=== PATIENT | female | born 1960 | race Caucasian/White ===

== ENCOUNTER 2023-09-05 21:11 | Emergency (ER) | payer OTHER, SELFPAY ==
[2023-09-05 21:14] VITALS: BP 157/109
[2023-09-05 21:57] LABS: % Eosinophils 0.8 % (0-6); % Immature Granulocytes 0.3 % (0-0.5); % Monocytes 5.9 % (1.7-9.3); Absolute Basophils 0.1 10^3/uL (0-0.2); Absolute Eosinophils 0.1 10^3/uL (0-0.7); Absolute Lymphocytes 2.6 10^3/uL (1.2-3.4); Absolute Monocytes 0.6 10^3/uL (0.1-0.6); Absolute Neutrophils 6.9 10^3/uL (1.4-6.5); Hemoglobin 14.8 g/dL (12.0-16.0); Mean Corp Hgb Conc. 36.1 g/dL (33.0-37.0); Mean Corpuscular Hgb 30.3 pg (27.0-31.0); Mean Corpuscular Volume 83.8 fL (81.0-99.0); Mean Platelet Volume 10.7 fL (7.4-10.4); Nucleated Red Blood Cells % 0 %; Platelet Count 351 10^3/uL (130-400); Red Blood Cell Count 4.89 10^6/uL (4.20-5.40); Red Cell Dist. Width 12.2 % (11.5-14.5); White Blood Cell Count 10.3 10^3/uL (4.8-10.8)
[2023-09-05 22:00] VITALS: BP 137/93
[2023-09-05 22:21] LABS: ALT (SGPT) 28 U/L (0-35); AST (SGOT) 26 U/L (14-36); Albumin 4.7 g/dl (3.5-5.0); Alkaline Phosphatase 64 U/L (38-126); Blood Urea Nitrogen 13 mg/dl (7-17); Carbon Dioxide 24 mmol/L (22-30); Chloride 97 mmol/L (98-107); Glucose 120 mg/dl (70-99); Potassium 3.1 mmol/L (3.5-5.1); Sodium 135 mmol/L (135-145); Total Bilirubin 0.5 mg/dl (0.2-1.3); Total Protein 7.9 g/dl (6.3-8.2); eGFR > 60.00
[2023-09-05 22:31] LABS: Troponin I < 0.012 ng/ml
--- NOTE | 2023-09-05 22:50 | ED.GENMED ---
History of Present Illness
General
Chief Complaint: Dehydration Symptoms
Source: patient and spouse
Exam Limitations: none
Time Seen by Provider: 09/05/23 22:10
Travel History
Have you had any contact with someone who has COVID-19?: No
Do you have any symptoms of coronavirus? Fever > 100 degrees, chills, cough, shortness of breath, sore throat, loss of taste or smell, muscle aches, or headache?: No
History of Present Illness
History of Present Illness:
63-year-old female presents with feeling dehydrated. Patient states she was out in the sun working in her yard. She then was out in the sun reading a book. Patient admits that she is on hydrochlorothiazide. She states she started to feel really
dehydrated. She felt very thirsty and then felt a little bit like she could not think straight. She then had palpitations. She checked her heart rate and felt like it was fast and may be as high as 130. Patient now feels much better and started
feel better on arrival to the emergency department. She denies associate chest pain or shortness of breath. She denies abdominal pain. No vomiting.
Past History
Past History
ED Past Medical History: HTN
ED Past Surgical History: Tonsilectomy
Social History
Tobacco: Non-smoker
Personal:
Living: with family
Family History
Family History: Negative Early CAD
Phy Exam
Physical Exam
Physical Exam:
CONSTITUTIONAL Patient alert and oriented to person, place and time. Well-appearing. Vital signs reviewed.
HEAD atraumatic, normocephalic.
EYES eyelids normal to inspection, Extraocular muscles intact, Conjunctiva normal, Sclera normal.
NECK normal range of motion, Trachea midline, no jugular venous distention.
RESPIRATORY CHEST No respiratory distress noted, Chest expansion equal, Bilateral breath sounds clear.
CARDIOVASCULAR regular rate and rhythm, Heart sounds normal.
ABDOMEN abdomen nontender, Bowel sounds normal. No distention.
BACK normal inspection, no obvious deformities
UPPER EXTREMITY range of motion normal, Motor strength normal, no cyanosis, no edema.
LOWER EXTREMITY range of motion normal, Motor strength normal, no cyanosis, no edema.
NEURO Speech normal, No focal motor deficits, Dang coma scale 15, Memory normal, Cranial Nerves intact to screening exam.
SKIN skin warm, dry, and normal in color.
PSYCHIATRIC patient oriented to person place and time, Normal affect.
Course
Orders/Labs/Results
Orders:
Orders
09/05/23 21:18
ECG [Electrocardiogram (*1)] Urgent
Reason for Study: Fatigue / Weakness
09/05/23 21:19
EKG- Treatment ONCE
09/05/23 21:47
CMP [Comprehensive Metabolic Panel] Urgent
Complete Blood Count/With Diff Urgent
09/05/23 21:49
Troponin I Urgent
09/05/23 22:50
Potassium Chloride 10% Elixir [KCl Elixir] 40 meq PO NOW STA
09/06/23 00:26
Potassium Chloride 10% Elixir [KCl Elixir] 40 meq PO NOW STA
Abnormal Lab Results
09/05/23
21:47
MPV 10.7 H fL
(7.4-10.4)
Absolute Neuts (auto) 6.9 H 10^3/uL
(1.4-6.5)
Potassium 3.1 L mmol/L
(3.5-5.1)
Chloride 97 L mmol/L
(98-107)
Glucose 120 H mg/dl
(70-99)
09/05/23 21:47
09/05/23 21:47
Vital Signs
Initial and Last Documented VS:
Initial Vital Signs
Temp Pulse Resp BP Pulse Ox
98.2 F 91 20 157/109 98
09/05/23 21:14 09/05/23 21:14 09/05/23 21:14 09/05/23 21:14 09/05/23 21:14
Last Documented Vital Signs
Temp Pulse Resp BP Pulse Ox
98.2 F 74 22 124/92 96
09/05/23 21:14 09/06/23 00:00 09/06/23 00:00 09/05/23 23:00 09/06/23 00:00
MDM/Problems Addressed
MDM/Problems Addressed:
Hypokalemia, dehydration
*Pulse Oximetry
Patient hypoxic: no
*EKG
Interpreted by ED Provider?: Yes
Interpretation: normal
Rate: normal
Rhythm: sinus
[place]: normal axis
QRS Pattern: poor R-wave progression
Ischemia: no ischemia
*Conversion Worker Interpretation
Rate: normal
Interpretation: normal
Rhythm: sinus
*Critical Care Note
Total Time (30-74mins, 75-104mins- exclusive of procedures): Not Applicable
Data Reviewed
Source: patient
Further Testing Considered But Not Given:
Consider D-dimer but no clinical risks of PE
Patient Management
Escalation/DeEscalation of care consider admission/obs:
Patient appears well. Remains in normal sinus rhythm. Hypokalemia noted likely from hydrochlorothiazide. Patient states she was on potassium in the past but stopped taking it. Recommended outpatient follow-up and daily potassium for the next 5
days.
ED Attending Note
-
Portions of this chart may have been created with voice recognition software.� Occasional wrong word or��sound alike� substitutions may have occurred due to the inherent limitations of voice recognition software.
Discharge Plan
Departure
Patient Disposition: Home (Routine Discharge)
Date of Disposition: 09/06/23
Time of Disposition: 00:27
Patient with high blood pressure during this ER visit?: Yes
Discharge Problem:
Acute dehydration, Acute hypokalemia, Heart palpitations
Instructions: Hypokalemia, Dehydration, Adult (DC), BLOOD PRESSURE, Heart Palpitations
Prescriptions:
New
potassium chloride 20 mEq tablet extended release
20 meq PO DAILY Qty: 5 0RF
No Action
hydrochlorothiazide 25 MG tablet
25 mg PO DAILY
Potassium
PO DAILY
Patient Comments:
pt not sure of dose
lorazepam [Ativan] 0.5 MG tablet
0.5 mg PO Q8HPRN PRN (Reason: anxiety) Qty: 15 0RF
Referrals:
Zuleika Allison DO [Family Provider] -
Activity Restrictions/Additional Instructions:
Please drink plenty of fluids. Please return immediately for palpitations, weakness of any kind, chest pain, shortness of breath or any other concerns
Interventions
Interventions:
*Risk Screen - Suicide Last Done: 09/05/23 21:14
*General Assessment Last Done: 09/05/23 21:14
*Neglect/Abuse Screening Last Done: 09/05/23 21:14
ED- Fall Risk Assessment Last Done: 09/06/23 00:50
*Nursing Disposition Last Done: 09/06/23 00:50
ED- Cardiac Assessment Last Done: 09/05/23 21:54
ED- Neurological Assessment Last Done: 09/05/23 21:54
ED- Pulmonary Assessment Last Done: 09/05/23 21:54
Discharge Date and Time
Discharge Date/Time: 09/06/23 00:51
Print Language: [id number]
[2023-09-05 23:00] VITALS: BP 124/92
[2023-09-06] MEDS: KCL ELIXIR 40 MEQ PO ×2 (00:01→00:42)
== END 2023-09-06 00:51 | disposition home or self-care (01) ==
LOC: EMR 21:11
PROVIDERS: Emergency Medicine; Student in an Organized Health Care Education/Training Program; EMERGENCY PHYSICIAN Emergency Medicine; FAMILY PHYSICIAN Family Medicine
DX: E86.0 Dehydration (principal); E87.6 Hypokalemia; R00.2 Palpitations; I10 Essential (primary) hypertension
CPT/HCPCS: 99284; 80053; 84484; 85025; 93005